=== PATIENT | female | born 1990 | race Caucasian/White ===

== ENCOUNTER 2017-03-31 10:08 | Emergency (ER) | payer MEDICAID ==
[~2017-03-31] VITALS: Ht 160 cm; Wt 77.1 kg
[2017-03-31 11:25] VITALS: BP 128/74
== END 2017-03-31 11:37 | disposition home or self-care (01) ==
LOC: ED 10:08
DX: R11.2 Nausea with vomiting, unspecified (principal); R19.7 Diarrhea, unspecified
CPT/HCPCS: Q0162

== ENCOUNTER 2017-05-24 14:04 | Emergency (ER) | payer SELFPAY ==
[~2017-05-24] VITALS: Ht 160 cm; Wt 77.1 kg
[2017-05-24 16:18] VITALS: BP 117/80
== END 2017-05-24 16:18 | disposition home or self-care (01) ==
LOC: ED 14:04
DX: G44.209 Tension-type headache, unspecified, not intractable (principal)

== ENCOUNTER 2019-07-27 06:02 | Emergency (ER) | payer MEDICAID ==
[~2019-07-27] VITALS: Ht 160 cm; Wt 77.1 kg
[2019-07-27 06:09] VITALS: Ht 160 cm; Wt 77.1 kg
[2019-07-27 07:26] LABS: BASOPHIL % 0.5 % (0-2); PLATELET COUNT 228 x10^3mcL (130-400)
[2019-07-27 07:27] LABS: RED CELL DISTRIBUTION WIDTH 15.1 % (11.5-14.5)
[2019-07-27 07:56] LABS: CARBON DIOXIDE 29.6 mmol/L (21-32); CHLORIDE SERUM 105 mmol/L (98-107); GLUCOSE SERUM 89 mg/dL (74-106); POTASSIUM SERUM 3.8 mmol/L (3.5-5.1); SODIUM SERUM 141 mmol/L (136-145)
[2019-07-27 07:57] LABS: CREATININE SERUM 0.6 mg/dL (0.6-1.0); GFR1 > 60 mL/min; TOTAL PROTEIN, SERUM 7.1 g/dL (6.4-8.2)
[2019-07-27 08:02] LABS: ALBUMIN 3.4 g/dL (3.4-5.0); CALCIUM 8.8 mg/dL (8.5-10.1)
[2019-07-27 08:03] LABS: ALKALINE PHOSPHATASE 75 U/L (46-116); ALT/SGPT 24 U/L (14-59); AST/SGOT 15 U/L (15-37); BILIRUBIN TOTAL 0.13 mg/dL (0.20-1.00); LIPASE 124 IU/L (73-393)
[2019-07-27 09:22] VITALS: BP 121/58
== END 2019-07-27 09:22 | disposition home or self-care (01) ==
LOC: ED 06:02
PROVIDERS: Emergency Medicine
DX: O23.41 Unspecified infection of urinary tract in pregnancy, first trimester (principal); O21.8 Other vomiting complicating pregnancy; Z3A.08 8 weeks gestation of pregnancy
CPT/HCPCS: 36415